=== PATIENT | male | born 1965 | race Caucasian/White ===

== ENCOUNTER 2018-05-31 10:16 | Emergency (ER) | payer SELFPAY ==
[~2018-05-31] VITALS: Ht 175.3 cm; Wt 69.1 kg
[2018-05-31 10:25] VITALS: BP 122/67
[2018-05-31] MEDS ORDERED: ALBUTEROL FS 2.5 MG/3 ML VIAL.NEB NEB ONE (10:30)
[2018-05-31] MEDS ORDERED: IPRATROPIUM NEB FS 0.5 MG/2.5 ML AMPUL.NEB NEB ONE (10:30)
[2018-05-31] MEDS ORDERED: CEPHALEXIN MONOHYDRATE 500 MG CAPSULE PO ONE (10:30)
--- NOTE | 2018-05-31 10:39 | NUR ---
DR QUICK AT BEDSIDE FOR EVAL.
--- NOTE | 2018-05-31 10:48 | NUR ---
PT REFUSING TREATMENT. STATING HE WANTS TO LEAVE. DENIES BEING SUICIDAL. AMBULATORY W/ STEADY GAIT. DR QUICK AWARE.
== END 2018-05-31 11:28 | disposition left against medical advice (07) ==
LOC: ER 10:20
DX: R05 Cough (principal); I10 Essential (primary) hypertension; F17.200 Nicotine dependence, unspecified, uncomplicated; Z60.2 Problems related to living alone